=== PATIENT | female | born 1975 | race Caucasian/White ===

== ENCOUNTER 2021-09-11 19:52 | Emergency (ER) | payer BC ==
[2021-09-11] MEDS ORDERED: HYDROmorphone 1 MG/ML Syringe IM ONE (20:04)
--- NOTE | 2021-09-11 20:24 | EDM.PDOC ---
ED HPI GENERAL MEDICAL PROBLEM - General Chief Complaint: General Stated Complaint: left arm pain Time Seen by Provider: 09/11/21 20:00 Source of Information: Reports: Patient History Limitations: Reports: No Limitations - History of Present Illness INITIAL COMMENTS - FREE TEXT/NARRATIVE: Patient fell earlier today on a tucked left forearm onto concrete stairs. She had on a long sleeve shirt and coat as this happened outside. She initally did not think much of it but as the day has progressed she has worsened. She is right handed. no previous injury. Not on a blood thinner. No other inury. Hurts to supinate the left arm. sensation intact to the fingers ont he left, no pain to the head, neck, shoulder or wrist of the left side. Onset: Today Duration: Getting Worse Location: Reports: Upper Extremity, Left Left Arm Pain Score (Numeric/FACES): 6 - Related Data Allergies Allergy/AdvReac Type Severity Reaction Status Date / Time No Known Allergies Allergy Verified 09/11/21 19:59 Home Meds: Home Meds Lisinopril/Hydrochlorothiazide [Lisinopril-Hctz 10-12.5 mg Tab] 1 tab PO DAILY 07/26/16 [History] Hydrocodone/Acetaminophen [HYDROcodone-Acetaminophen 5-325 MG] 1 each PO Q6H PRN #30 tab 09/11/21 [Rx] Past Medical History HEENT History: Reports: None Cardiovascular History: Reports: Hypertension Respiratory History: Reports: None Gastrointestinal History: Reports: None Genitourinary History: Reports: None [employer] History: Reports: None Musculoskeletal History: Reports: None Neurological History: Reports: None Psychiatric History: Reports: None Endocrine/Metabolic History: Reports: None Hematologic History: Reports: None Immunologic History: Reports: None Oncologic (Cancer) History: Reports: None Dermatologic History: Reports: None - Infectious Disease History Infectious Disease History: Reports: Chicken Pox - Past Surgical History Head Surgeries/Procedures: Reports: None HEENT Surgical History: Reports: Adenoidectomy, Tonsillectomy GI Surgical History: Reports: Appendectomy Female Surgical History: Reports: Tubal Ligation Other Female Surgeries/Procedures: and reversal of tubal ligation Musculoskeletal Surgical History: Reports: Other (See Below) Other Musculoskeletal Surgeries/Procedures:: right knee surgery Social & Family History - Caffeine Use Caffeine Use: Reports: Coffee - Recreational Drug Use Recreational Drug Use: No Drug Use in Last 12 Months: No Review of Systems - Review of Systems Review Of Systems: See Below Constitutional: Reports: No Symptoms. Denies: Chills, Fever Eyes: Reports: No Symptoms Ears: Reports: No Symptoms. Denies: Pain, Tinnitus Nose: Reports: No Symptoms. Denies: Congestion, Clear Discharge Mouth/Throat: Reports: No Symptoms. Denies: Hoarse Voice, Difficulty Swallowing, Painful Swallowing Respiratory: Reports: No Symptoms. Denies: Shortness of Breath, Cough Cardiovascular: Denies: Chest Pain GI/Abdominal: Reports: No Symptoms. Denies: Abdominal Pain Genitourinary: Reports: No Symptoms Musculoskeletal: Reports: No Symptoms, Joint Pain (left elbow and forearm proximally) Skin: Reports: Other (small abrasion left elbow) ED EXAM, GENERAL - Physical Exam Exam: See Below Exam Limited By: No Limitations General Appearance: Alert, WD/WN, No Apparent Distress Eye Exam: Bilateral Eye: Abnormal EOM, EOMI Ears: Hearing Grossly Normal Nose: Normal Inspection Throat/Mouth: Normal Oropharynx, Normal Voice, No Airway Compromise Head: Atraumatic, Normocephalic Neck: Normal Inspection, Full Range of Motion Respiratory/Chest: No Respiratory Distress, Lungs Clear, Normal Breath Sounds Cardiovascular: Normal Peripheral Pulses, Regular Rate, Rhythm, No Edema Extremities: Other (left elbow with pain to full extension at the proximal forearm/head of the radius. refuses to supinate, sensation intact to the fingers on the left, capillary refill < 3 sec. Good radial and ulnar pulses/ no pain left shoulder, clavicle to palpation) Neurological: Alert, Oriented, CN II-XII Intact Course - Vital Signs Last Recorded V/S: Last Vital Signs Temp 36.2 C 09/11/21 20:21 Pulse 86 09/11/21 20:21 Resp 18 09/11/21 20:21 BP 139/91 H 09/11/21 20:21 Pulse Ox 100 09/11/21 20:21 - Orders/Labs/Meds Orders: Active Orders 24 hr Category Date Time Status Elbow Min 3V Lt [CR] Stat Exams 09/11/21 20:04 Taken Forearm 2V Lt [CR] Stat Exams 09/11/21 20:04 Taken Meds: Medications Discontinued Medications Generic Name Dose Route Start Last Admin Trade Name Freq PRN Reason Stop Dose Admin Hydrocodone Bitart/Acetaminophen 1 packet 09/11/21 20:59 Take Home: Acetaminophen/Hydrocodone 325-5 Mg, 2 Tab Pack PO 09/11/21 21:00 ONETIME ONE Hydromorphone HCl 1 mg 09/11/21 20:04 09/11/21 20:12 Hydromorphone 1 Mg/Ml Syringe IM 09/11/21 20:05 1 mg ONETIME ONE Administration - Re-Assessments/Exams Free Text/Narrative Re-Assessment/Exam: 09/11/21 20:23 Offered pain medication IM injection of dlaudid 1 mg, patent Masabi, has a ride home. will get an x-ray Departure - Departure Time of Disposition: 20:51 Disposition: Home, Self-Care 01 Condition: Good Clinical Impression: Radial head fracture - Discharge Information *PRESCRIPTION DRUG MONITORING PROGRAM REVIEWED*: No *COPY OF PRESCRIPTION DRUG MONITORING REPORT IN PATIENT YURY: No Prescriptions: Hydrocodone/Acetaminophen [HYDROcodone-Acetaminophen 5-325 MG] 1 each PO Q6H PRN #30 tab PRN Reason: Pain Instructions: Acute Compartment Syndrome, Radial Head Fracture, [id number] Forms: ED Department Discharge Additional Instructions: ice the area and keep in the immobilizer as much as possible. Avoid rotation of the arm. Use the pain medication every 6 hours as needed for pain. This will cause constipation, so take a stool softener or miralax to help with this. 4-5 times a day take the arm out of the immobilizer and make sure you can fully straighten and bend it to maintain motion in the elbow. Do not carry anything with this arm and do not hold anything heavier than a coffee cup. Make appointment for follow up with orthopedics in 7-10 days. You were given information on compartment syndrome, if you note increased pain out of proportion, paleness of whiteness of the hand, or hard tissue in the forearm, present to a surgeon. you were given information on this to educate yourself. Sepsis Event Note (ED) - Focused Exam Vital Signs: Vital Signs Temp Pulse Resp BP Pulse Ox 09/11/21 20:21 36.2 C 86 18 139/91 H 100 - My Orders Last 24 Hours: My Active Orders 09/11/21 20:04 Elbow Min 3V Lt [CR] Stat Forearm 2V Lt [CR] Stat - Assessment/Plan Last 24 Hours: My Active Orders 12/05/21 20:04 Elbow Min 3V Lt [CR] Stat Forearm 2V Lt [CR] Stat
[2021-09-11 20:25] VITALS: BP 139/91; PULSE 86
[2021-09-11] MEDS ORDERED: Take Home: Acetaminophen/HYDROcodone 325-5 MG, 2 Tab Pack PO ONE (20:59)
[2021-09-12] MEDS ORDERED: Take Home: Acetaminophen/HYDROcodone 325-5 MG, 2 Tab Pack PO ONE (05:33)
== END 2021-09-11 21:05 | disposition home or self-care (01) ==
LOC: CC.ED 19:52
DX: S52.122A Displaced fracture of head of left radius, initial encounter for closed fracture (principal); I10 Essential (primary) hypertension; Z79.899 Other long term (current) drug therapy; W10.9XXA Fall (on) (from) unspecified stairs and steps, initial encounter
CPT/HCPCS: 73080; 73090; 96372; 99283; A9270; J1170